=== PATIENT | male | born 1980 | race Caucasian/White ===

== ENCOUNTER 2016-11-30 08:39 | Emergency (ER) | payer SELFPAY ==
[~2016-11-30] VITALS: Ht 165.1 cm; Wt 68.0 kg
[2016-11-30 09:14] VITALS: BP 157/99
[2016-11-30] MEDS ORDERED: HYDROCODONE/APAP 5/325MG 1 EACH TABLET ONE (09:37)
[2016-11-30] MEDS ORDERED: HYDROCODONE/APAP 5/325MG 1 EACH TABLET PO ONE (10:00)
== END 2016-11-30 10:02 | disposition home or self-care (01) ==
LOC: ER 08:41
DX: S42.021A Displaced fracture of shaft of right clavicle, initial encounter for closed fracture (principal); J93.9 Pneumothorax, unspecified; X58.XXXA Exposure to other specified factors, initial encounter; Y93.89 Activity, other specified; Y92.89 Other specified places as the place of occurrence of the external cause; Y99.8 Other external cause status
CPT/HCPCS: 73000-TC; A4606; Z7610